=== PATIENT | female | born 1955 | race Caucasian/White ===

== ENCOUNTER 2017-04-08 12:55 | Emergency (ER) | payer OTHER ==
[2017-04-08] MEDS ORDERED: METOCLOPRAMIDE 10 MG/2 ML VIAL IVP STA (14:01)
[2017-04-08] MEDS ORDERED: diphenhydrAMINE INJ 50 MG/ML VIAL IVP STA (14:02)
[2017-04-08] MEDS ORDERED: SODIUM CHLORIDE 0.9% 1,000 ML IV ONE (14:02)
[2017-04-08 14:07] LABS: BASOPHILS % (AUTO) 0.4 %; EOSINOPHILS % (AUTO) 0.2 %; HCT - HEMATOCRIT 45.3 % (37.0-47.0); HGB - HEMOGLOBIN 15.3 g/dL (12.0-16.0); LYMPHOCYTES # (AUTO) 1.1 10^3/uL (1.5-3.5); MEAN CORPUSCULAR HGB CONC 33.8 g/dL (32.0-36.0); MEAN CORPUSCULAR VOLUME 88.5 fL (81.0-99.0); MEAN PLATELET VOLUME 8.3 fL (7.9-10.8); MONOCYTES # (AUTO) 0.3 10^3/uL (0.0-1.0); NEUTROPHILS # (AUTO) 10.2 10^3/uL (1.5-6.6); NEUTROPHILS % (AUTO) 87.4 %; RED BLOOD COUNT 5.11 10^6/uL (4.20-5.40); UNCORRECTED WHITE BLOOD COUNT 11.6 x10^3/uL; WHITE BLOOD COUNT 11.6 x10^3/uL (4.8-10.8)
[2017-04-08] MEDS ORDERED: METOCLOPRAMIDE 10 MG/2 ML VIAL ONE (14:20)
[2017-04-08] MEDS ORDERED: diphenhydrAMINE INJ 50 MG/ML VIAL ONE (14:20)
[2017-04-08 14:22] LABS: ALBUMIN/GLOBULIN RATIO 1.4 (1.0-2.2); BUN - BLOOD UREA NITROGEN 19 mg/dL (6-20); CALCIUM 9.5 mg/dL (8.5-10.3); CARBON DIOXIDE - CO2 23 mmol/L (21-32); CHLORIDE 100 mmol/L (101-111); CREATININE 0.8 mg/dL (0.4-1.0); GFR - MDRD 73 (>89); GLUCOSE 152 mg/dL (70-100); LIPASE 22 U/L (22-51); POTASSIUM 4.1 mmol/L (3.5-5.0); SODIUM 135 mmol/L (135-145); TOTAL PROTEIN 7.7 g/dL (6.7-8.2)
[2017-04-08] MEDS ORDERED: IOPAMIDOL-300 100 ML VIAL ONE (15:05)
[2017-04-08] MEDS ORDERED: IOPAMIDOL-300 100 ML VIAL IVP ONE (15:29)
--- NOTE | 2017-04-08 16:01 | CT Preliminary Report ---
Exam: CT HEAD W/ Impressions: 1. Negative exam as detailed no venous thrombosis. [facility] SITE ID: [id number]
--- NOTE | 2017-04-08 16:04 | CT Report ---
EXAM: CT HEAD EXAM DATE: 04/08/2017 03:29 PM. CLINICAL HISTORY: Headache, evaluate for venous thrombosis. COMPARISON: None. TECHNIQUE: Multiaxial CT images were obtained from the foramen magnum to the vertex. Reformats: Coron al. IV contrast: 100 cc of Isovue-300. In accordance with CT protocol optimization, one or more of the following dose reduction techniques w ere utilized for this exam: automated exposure control, adjustment of mA and/or KV based on patient s ize, or use of iterative reconstructive technique. Findings: Relevant images are indicated (image number, series number). Sewer Line Repairer AP, lateral view skull demonstrates no linear skull fracture. Upper airway patent. There is no hemorrhage, mass or midline shift. Minimal generalize cortical atrophy present. Ventricle s not dilated. Mild suspected periventricular, subcortical white matter disease present. There is no acute arterial thrombosis of the major cranial arteries. Basal cisterns are patent. Orbital contents negative. Paranasal sinuses, mastoid air cells are clear. Skull base intact, calvarium intact and unremarkable. Postcontrast imaging demonstrates no abnormal enhancement of the brain, meninges. There is no evidence for venous sinus thrombosis. Codominant bilateral transverse venous sinuses. Impressions: 1. Negative exam as detailed no venous thrombosis. [facility] Referring Provider Line: [phone] SITE ID: [id number]
[2017-04-08] MEDS ORDERED: DEXAMETHASONE 10 MG/ML VIAL IVP STA (17:09)
[2017-04-08] MEDS ORDERED: BUTALB/ACETAM/CAFF 50/325/40MG TABLET PO STA (17:09)
[2017-04-08] MEDS ORDERED: DEXAMETHASONE 10 MG/ML VIAL ONE (17:19)
--- NOTE | 2017-04-08 17:19 | ED Physician Documentation ---
History of Present Illness - Stated complaint Stated Complaint: VOMITING - Chief complaint Chief Complaint: Abd Pain - History obtained from History obtained from: Patient (pt is here for evaluation of a headache. she staes that she has been having the headache for the past 2 weeks. Has seen her PCM for this 'five times" and there has been some adjustment of her HTN medications. she as also seen dental for this because it has been hurting in her left jaw. She reports a hx of migranes but that this is different than prior headache, no fevers, no neck pain, no sinus congestion, no sick contacts.) Review of Systems Constitutional: denies: Fever, Chills Eyes: denies: Loss of vision, Photophobia Ears: reports: Ear pain (left) Throat: reports: Dental pain / toothache. denies: Sore throat, Swollen tonsils Cardiac: denies: Chest pain / pressure, Palpitations Respiratory: denies: Dyspnea, Cough, Wheezing GI: reports: Nausea. denies: Abdominal Pain, Vomiting, Constipation, Diarrhea : denies: Dysuria, Frequency Skin: denies: Rash, Lesions Musculoskeletal: denies: Neck pain, Extremity pain, Joint pain, Joint swelling Neurologic: reports: Headache. denies: Generalized weakness, Focal weakness, Difficulty speaking, Confused, Head injury, LOC PD PAST MEDICAL HISTORY - Past Medical History Past Medical History: Yes Cardiovascular: Hypertension Neuro: Headache/migraine Psych: Depression, Anxiety Other Past Medical History: melanoma - Past Surgical History Past Surgical History: Yes /LAYOUT FORMER: Hysterectomy - Present Medications Home Medications: Ambulatory Orders Medication Instructions Recorded Confirmed Butalb/Acetaminophen/Caffeine 1 each PO TID PRN #20 capsule 04/08/17 [Fioricet 50-300-40 mg Capsule] Hormone Replacement SL DAILY 04/08/17 Losartan/Hydrochlorothiazide 1 tab ORAL DAILY 04/08/17 04/08/17 [Losartan-Hctz 100-25 mg Tab] Ondansetron Odt [Zofran] 4 mg TL Q6H PRN #10 tablet 04/08/17 buPROPion HCl [Bupropion HCl] 75 mg PO DAILY 04/08/17 04/08/17 - Allergies Allergies/Adverse Reactions: Allergies Allergy/AdvReac Type Severity Reaction Status Date / Time Sulfa (Sulfonamide Allergy Nausea Verified 04/08/17 13:04 Antibiotics) - Social History Does the pt smoke?: No Smoking Status: Never smoker Does the pt drink ETOH?: Yes ETOH Use: Wine Does the pt have substance abuse?: No - Immunizations Immunizations are current?: Yes PD ED PE NORMAL - Vitals Vital signs reviewed: Yes - General General: Alert and oriented X 3, Well developed/nourished. No: No acute distress (moderate distress) - HEENT HEENT: Atraumatic, PERRL, EOMI, Ears normal, Moist mucous membranes, Pharynx benign, Dentition benign, Other ( TTP over left temporal artery. 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 No: Unequal pupils, EOM palsy, Injected conj/sclera, Subconj hemorrhage - Neuro Neuro: Alert and Oriented X 3, Normal Sensation, Normal Speech, CNII-XII intact , PERRL, Normal speech. No: Confused, Disoriented, Lethargic, Abnormal sensation, Right face, Left face, CN deficit, Nystagmus, Aphasia, Dysarthria Results - Vitals Vitals: Vital Signs - 24 hr 04/08/17 04/08/17 04/08/17 13:00 13:47 14:25 Temperature 35.2 C L Heart Rate 78 71 80 Respiratory 16 16 16 Rate Blood Pressure 178/110 H 163/93 H 167/98 H O2 Saturation 100 98 97 04/08/17 16:26 Temperature Heart Rate 82 Respiratory 16 Rate Blood Pressure 154/96 H O2 Saturation 99 Oxygen O2 Source Room air - Labs Labs: Laboratory Tests 04/08/17 04/08/17 04/08/17 13:45 13:45 13:45 WBC 11.6 H RBC 5.11 Hgb 15.3 Hct 45.3 MCV 88.5 MCH 30.0 MCHC 33.8 RDW 13.0 Plt Count 238 MPV 8.3 Neut # 10.2 H Lymph # 1.1 L Rush # 0.3 Eos # 0.0 Baso # 0.0 Absolute Nucleated RBC 0.00 Nucleated RBC % 0.0 ESR 1 Sodium 135 Potassium 4.1 Chloride 100 L Carbon Dioxide 23 Anion Gap 12.0 BUN 19 Creatinine 0.8 Estimated GFR (MDRD) 73 L Glucose 152 H Calcium 9.5 Total Bilirubin 1.0 AST 26 ALT 30 Alkaline Phosphatase 77 C-Reactive Protein < 1.0 Total Protein 7.7 Albumin 4.5 Globulin 3.2 Albumin/Globulin Ratio 1.4 Lipase 22 - Rads (name of study) CTV head Radiology: Final report received PD MEDICAL DECISION MAKING - ED course Complexity details: d/w patient, d/w family ED course: pt was given IV meds in the ER along with steroids. CTV neg for mass or thrombus. IOP normal so doubt glaucoma. No fevers and no neck pain so doubt meningitis. her headache improved with medications. ESR/CRP neg so doubt TA. no skin changes on the face concerning for zoster. does not complain of sinus congestion and bilateral TM's normal. she has been evaluated by dental for this headache and was told that it was not a dental issue. may still be TMJ. I discussed LP with the pt to further evaluate for SAH and the pt declined. She ahs had these symptoms for 2 weeks now so I doubt SAH. will send home with zofran and Fioricet. she has a flight back home tomorrow and will see her PCM. PE is not CW a CVA. these discussions were had with the at bedside. Also considered CO exposure but no other family members are sick. Departure - Departure Disposition: 01 Home, Self Care Clinical Impression: Headache Condition: Good Instructions: ED Cephalgia Unspecified Follow-Up: primary,care provider [Other] Prescriptions: Butalb/Acetaminophen/Caffeine [Fioricet 50-300-40 mg Capsule] 1 each PO TID PRN #20 capsule PRN Reason: Headache Ondansetron Odt [Zofran] 4 mg TL Q6H PRN #10 tablet PRN Reason: Nausea / Vomiting Comments: take all of your medications as instructed. Call your primary care provider for a follow up when you return home. Return to the ER for any new or worsening symptoms.
[2017-04-08 17:41] VITALS: BP 149/102
== END 2017-04-08 18:02 | disposition home or self-care (01) ==
LOC: ED 12:55
DX: R51 Headache (principal); I10 Essential (primary) hypertension; Z85.820 Personal history of malignant melanoma of skin
CPT/HCPCS: 36415; 70460; 80053; 83690; 85025; 85651; 86140; 96361; 96374; 96375; 99284; A9270; Q9967